=== PATIENT | male | born 1990 | race Caucasian/White ===

== ENCOUNTER 2017-09-11 21:10 | Emergency (ER) | payer BC, OTHER ==
[~2017-09-11] VITALS: Ht 182.9 cm; Wt 100.6 kg
[2017-09-11 21:20] VITALS: Ht 182.9 cm; Wt 100.6 kg
[2017-09-11 22:37] LABS: ADD UMIC NO; UR ASCORBIC ACID NEGATIVE (NEGATIVE); UR BILIRUBIN (Dip) NEGATIVE (NEGATIVE); UR BLOOD (Dip) NEGATIVE (NEGATIVE); UR CLARITY CLEAR (CLEAR); UR COLOR YELLOW (YELLOW); UR GLUCOSE (Dip) NEGATIVE (NEGATIVE); UR KETONES (Dip) NEGATIVE (NEGATIVE); UR LEUKOCYTE ESTERASE (Dip) NEGATIVE Leu/ul (NEGATIVE); UR NITRITE (Dip) NEGATIVE (NEGATIVE); UR SPECIFIC GRAVITY (Dip) 1.033 (1.003-1.030); UR TOTAL PROTEIN (Dip) NEGATIVE (NEGATIVE); UR UROBILINOGEN (Dip) 2+ mg/dL (NEGATIVE)
[2017-09-11] MEDS ORDERED: CEFTRIAXONE 250 MG INJ IM ONE (23:30)
[2017-09-11] MEDS ORDERED: AZITHROMYCIN 250 MG TAB PO ONE (23:30)
--- NOTE | 2017-09-11 23:46 | RADRPT ---
PROCEDURE: Scrotal ultrasound CLINICAL INDICATION: Scrotal pain. TECHNIQUE: Scrotal ultrasound was performed with sagittal and transverse views. Cantu scale and co eduardo imaging was performed. Images were reviewed on high resolution PACS monitors. COMPARISON: None available FINDINGS: The right testicle measures 4.3 x 2.4 x 3.3 cm . There is normal size and echogenicity and morpholog y of the right testicle with normal blood flow. The right epididymis is normal. A mild hydrocele is seen. There is no evidence for a varicocele.. The left testicle measures 4.6 x 2.3 x 3.1 cm. There is normal size and echogenicity and morphology of the left testicle with normal blood flow. There is small left epididymal head cysts measuring up to 2.5 mm. The left epididymis is otherwise normal. A mild hydrocele is seen. There is no evidence for a varicocele.. IMPRESSION: 1. Normal examination testes without evidence for orchitis or torsion. 2. Mild bilateral hydroceles. 3. Small left epididymal cyst. RPTAT: HMVK .Boubacar Devine MD, MD Date Time Electronically viewed and signed by .Boubacar Devine MD, MD on 09/11/2017 23:45 .K/
[2017-09-11] MEDS ORDERED: CLOT30CR24 TOP (23:57)
[2017-09-12 00:11] VITALS: PULSE 69; RESP 22; TEMP 97.4
--- NOTE | 2017-09-12 02:15 | ERD ---
ER Documentation Chief Complaint Chief Complaint bib self, cc: urinary pain x 4 days, burning sensation while urinating HPI 26-year-old male complaining of dysuria and penile pain 4 days. Patient stated that he has continuous burning sensation during urination. He also had pain at the base of his penis. Patient stated that he has only one sexual partner in the last 12 month, and is with this partner for 2-3 years. Denies fever or chills. Denies urinary frequency or urgency. Denies penile discharge. Denies flank pain. ROS All systems reviewed and are negative except as per history of present illness. Medications Home Meds Active Scripts Clotrimazole* (Clotrimazole* AF) 1% - 30 Gm Cream.gm., 1 APPLIC TOP BID for 14 Days, TUB Prov:SOL RASHEED. MEDICAL BILLING COORDINATOR 09/11/17 Allergies Allergies: Coded Allergies: No Known Allergy (Unverified , 09/11/17) PMhx/Soc Medical and Surgical Hx: pt denies Medical Hx, pt denies Surgical Hx Hx Alcohol Use: Yes Hx Substance Use: No Hx Tobacco Use: Yes Smoking Status: Current every day smoker Physical Exam Vitals Vital Signs Date Time Temp Pulse Resp B/P Pulse Ox O2 Delivery O2 Flow Rate FiO2 09/12/17 00:11 97.4 69 22 99 Room Air 09/11/17 21:20 98.5 86 18 155/93 100 Physical Exam General: Well-developed, well-nourished, conscious and coherent, in no distress Skin: Warm and dry without rash, good texture and turgor Head: Normocephalic without evidence of trauma Eyes: Sclera and conjunctivae normal; pupils equal, round, and reactive to light; extraocular movements are intact Chest: Normal AP diameter. Good expansion without retractions. Nontender. Lungs are clear to auscultate bilaterally with good tidal volume Heart: Regular rate and rhythm. No murmur, rub, or gallops heard Abdomen: Soft and nontender without masses, guarding, or rebound. Bowel sounds are active. No hepatosplenomegaly Back: Without spinal or CVA tenderness Pelvis: Nontender to palpation and stable to compression : Uncircumsized male. Erythema noted at the urethra meatus, and base of the penile shaft in the posterior aspect, no penile discharge. Normal scrotum, no mass noted. No inguinal hernia. Extremities: Full range of motion. Good strength bilaterally. No clubbing, cyanosis, or edema. Peripheral pulses are intact. Sensation intact Neuro: Alert and oriented 4, GCS 15. Cranial nerves grossly intact. Motor and sensory exams nonfocal. Moves all extremities. Speech clear. Gait normal Results 24 hrs Laboratory Tests Test 09/11/17 21:14 Urine Color YELLOW Urine Clarity CLEAR Urine pH 6.0 Urine Specific [place] 1.033 Urine Ketones NEGATIVEmg/dL Urine Nitrite NEGATIVEmg/dL Urine Bilirubin NEGATIVEmg/dL Urine Urobilinogen 2+mg/dL Urine Leukocyte Esterase NEGATIVELeu/ul Urine Hemoglobin NEGATIVEmg/dL Urine Glucose NEGATIVEmg/dL Urine Total Protein NEGATIVEmg/dl Current Medications Medications (Trade) Dose Ordered Sig/Avi Route PRN Reason Start Time Stop Time Status Last Admin Dose Admin Azithromycin (Zithromax) 1,000 mg ONCE ONCE PO 09/11/17 23:30 09/11/17 23:31 DC 09/11/17 23:53 Ceftriaxone Sodium (Rocephin) 250 mg ONCE ONCE IM 09/11/17 23:30 09/11/17 23:31 DC 09/11/17 23:54 PROCEDURE: Scrotal ultrasound CLINICAL INDICATION: Scrotal pain. TECHNIQUE: Scrotal ultrasound was performed with sagittal and transverse views. Cantu scale and color imaging was performed. Images were reviewed on high resolution PACS monitors. COMPARISON: None available FINDINGS: The right testicle measures 4.3 x 2.4 x 3.3 cm . There is normal size and echogenicity and morphology of the right testicle with normal blood flow. The right epididymis is normal. A mild hydrocele is seen. There is no evidence for a varicocele.. The left testicle measures 4.6 x 2.3 x 3.1 cm. There is normal size and echogenicity and morphology of the left testicle with normal blood flow. There is small left epididymal head cysts measuring up to 2.5 mm. The left epididymis is otherwise normal. A mild hydrocele is seen. There is no evidence for a varicocele.. IMPRESSION: 1. Normal examination testes without evidence for orchitis or torsion. 2. Mild bilateral hydroceles. 3. Small left epididymal cyst. RPTAT: HMVK .Boubacar Devine MD, MD Date Time Electronically viewed and signed by .Boubacar Devine MD, on 09/11/2017 23:45 .K/ CC: SOL RASHEED NP Procedures/MDM Well-appearing 26-year-old male present ED was dysuria and penile pain 4 days. UA is negative. Scrotal ultrasound obtained, negative for epididymitis or orchitis. Despite patient complaining of monogamous sexual relationship, patient is in the age group of high risk for sexually transmitted infection. Urine sent out for chlamydia and gonorrhea testing, results pending. Patient given azithromycin 1 g p.o. and Rocephin 250 mg IM in the ED. Patient is noted to have erythema and tenderness at the urethra meatus and base of the penile shaft on exam. It is possible the patient's symptoms is due to fungal balanitis. Clotrimazole cream prescribed for patient. Patient advised to keep the area clean and dry, he is also advised to pullback foreskin and clean the penile head thoroughly during shower. Patient appears well, stable for discharge and outpatient management. Medical decision making shared with patient and family. Education provided to patient and family. Patient and family expressed understanding of the plan. Medications on discharge: Clotrimazole cream. Follow-up: Primary care provider in 2-3 days or return to ED if worse. Disclaimer: Inadvertent spelling and grammatical errors are likely due to EHR/ dictation software use and do not reflect on the overall quality of patient care. Also, please note that the electronic time recorded on this note does not necessarily reflect the actual time of the patient encounter. Departure Diagnosis: Primary Impression: Dysuria Additional Impression: Balanitis Condition: Stable Patient Instructions: Dysuria, Balanitis Additional Instructions: Call your primary care doctor TOMORROW for an appointment during the next 2-3 days.See the doctor sooner or return here if your condition worsens before your appointment time. SOL RASHEED NP Sep 12, 2017 02:15
== END 2017-09-12 00:05 | disposition home or self-care (01) ==
LOC: FTE 21:10
DX: R30.0 Dysuria (principal); N48.1 Balanitis; F17.210 Nicotine dependence, cigarettes, uncomplicated
CPT/HCPCS: 76870; 81003; 87591; 96372; J0696; Z7502; Z7610

== ENCOUNTER 2019-04-07 11:58 | Day surgery (SDC) | payer BC ==
[2019-04-06 14:02] VITALS: Ht 185.4 cm; Wt 99.5 kg
[2019-04-07] VITALS (12 sets, daily range): BP systolic 102–139; BP diastolic 59–93; PULSE 60–76; RESP 14–31
[~2019-04-07] VITALS: Ht 185.4 cm; Wt 99.5 kg
[~2019-04-07 11:58] MED LIST: CLOT30CR24 TOP
[2019-04-07] MEDS ORDERED: LACTATED RINGER'S 1,000 ML IV SCH (13:30)
--- NOTE | 2019-04-07 13:42 | HPN ---
Date/Time of Note Date/Time of Note DATE: 04/07/19 TIME: 13:42 Interval H&P Admission Note Pt. seen H&P reviewed: No system changes MYNOR CRABTREE MD Apr 07, 2019 13:42
--- NOTE | 2019-04-07 14:30 | PREAC ---
Date/Time of Note Date/Time of Note DATE: 04/07/19 TIME: 14:29 Anesthesia Eval and Record Evaluation Time Pre-Procedure Interview DATE: 04/07/19 TIME: 14:29 Age 28 Sex male NPO: 8 hrs Preoperative diagnosis Left preauricular mass Planned procedure Excision of mass Past Medical History Past Medical History: None Surgery & Anesthesia Issues No known issue Meds Anticoagulation: No Beta Vijay within 24 hr: No Reason Beta Vijay not given: Pt. not on B-Vijay No Active Prescriptions or Reported Meds Current Medications Lactated Ringer's 1,000 ml @ 25 mls/hr Q24H IV Last administered on 04/07/19at 13:12; Admin Dose 25 MLS/HR; Start 04/07/19 at 13:30 Meds reviewed: Yes Allergies Coded Allergies: No Known Allergy (Unverified , 04/07/19) Allergies Reviewed: Yes Labs/Studies Labs Reviewed: Reviewed by anesthesiologist test: N/A Pre-procedure Exam Last vitals Vital Signs Date Temp Pulse Resp B/P (MAP) Pulse Ox O2 O2 Flow FiO2 Time Delivery Rate 04/07/19 98.2 60 16 116/84 100 Room Air 13:01 (95) Airway: Adequate mouth opening Mallampati: Mallampati II Teeth: Normal Lung: Normal Heart: Normal ASA Physical Status ASA physical status: 1 Emergency: None Planned Anesthetic General/MAC: LMA Planned Pain Management Parenteral pain med Pre-operative Attestations Prior to commencing anesthesia and surgery, the patient was re-evaluated, there was verification of: *The patient's identity *The results of appropriate recent lab work and preoperative vital signs *The above evaluation not changing prior to induction *Anesthetic plan, risk benefits, alternative and complications discussed with patient/family; questions answered; patient/family understands, accepts and wishes to proceed. GEETHA SEQUEIRA MD Apr 07, 2019 14:30
[2019-04-07] MEDS ORDERED: PROPOFOL 20 ML ONE (14:38)
[2019-04-07] MEDS ORDERED: LIDOCAINE 2% (SDV) 5 ML INJ ONE (14:38)
[2019-04-07] MEDS ORDERED: LIDOCAINE 1%/EPI 30 ML INJ ONE (14:43)
[2019-04-07] MEDS ORDERED: NEOMYC/POLYMYX/BACIT 30 GM OINT ONE (15:34)
[2019-04-07] MEDS ORDERED: CEFAZOLIN 1 GM INJ ONE (15:38)
--- NOTE | 2019-04-07 15:46 | SIPON ---
Date/Time of Note Date/Time of Note DATE: 04/07/19 TIME: 15:44 Operative Report Preoperative Diagnosis 1. Left preauricular mass 2. Left infra-auricular mass Postoperative Diagnosis Same Operation/Procedure Performed Excision of left preauricular mass Excision of left infra-auricular mass Surgeon see signature line records management assistant None Anesthesia: general Estimated blood loss: minimal Transfusion Required none Specimen Left preauricular mass Left infra-auricular mass Grafts/Implants none Complications none MYNOR CRABTREE MD Apr 07, 2019 15:46
[2019-04-07] MEDS ORDERED: METOCLOPRAMIDE 10 MG INJ IV PRN (16:00)
[2019-04-07] MEDS ORDERED: ONDANSETRON 4 MG INJ IV PRN (16:00)
[2019-04-07] MEDS ORDERED: FENTAnyl 50 MCG/ML VIAL IV PRN ×3 (16:00)
[2019-04-07] MEDS ORDERED: OXYCODONE/ACETAMINOPHEN (5/325) TAB PO PRN ×2 (16:00)
[2019-04-07] MEDS ORDERED: MIDAZOLAM 1 MG/ML 2 ML INJ IV PRN (16:00)
[2019-04-07] MEDS ORDERED: DIPHENHYDRAMINE 50 MG INJ IV PRN (16:00)
[2019-04-07] MEDS ORDERED: MEPERIDINE 25 MG INJ IV PRN (16:00)
--- NOTE | 2019-04-07 18:09 | PAC ---
Date/Time of Note Date/Time of Note DATE: 04/07/19 TIME: 18:09 Post-Anesthesia Notes Post-Anesthesia Note Last documented vital signs Vital Signs Date Temp Pulse Resp B/P (MAP) Pulse Ox O2 O2 Flow FiO2 Time Delivery Rate 04/07/19 97.8 68 18 139/68 99 Room Air 16:35 (91) 04/07/19 2.0 15:57 Activity: WNL Respiratory function: WNL Cardiovascular function: WNL Mental status: Baseline Pain reasonably controlled: Yes Hydration appropriate: Yes Nausea/Vomiting absent: Yes GEETHA SEQUEIRA MD Apr 07, 2019 18:09
--- NOTE | 2019-04-08 08:08 | OPR ---
DATE OF OPERATION: 04/07/2019 PREOPERATIVE DIAGNOSES: 1. Left preauricular mass. 2. Left infraauricular mass. POSTOPERATIVE DIAGNOSES: 1. Left preauricular mass. 2. Left infraauricular mass. OPERATION PERFORMED: 1. Excision of left preauricular mass. 2. Excision of left infraauricular mass. INDICATIONS: This is a 28-year-old gentleman with a history of multiple subcutaneous cystic lesions. The patient presented with a preauricular mass that was slowly expanding. He stated that there had been discharge from the cyst decompressed in the past. He was referred from a general surgeon due t o possible parotid mass. He underwent a CT scan of the neck that demonstrated a subcutaneous cystic mass that was separate from the parotid gland. I discussed with the patient the risks, benefits, rat ionale, alternatives to surgery, which included but were not limited to, dissatisfaction with cosmeti c outcome, recurrence of mass, infection, bleeding, scar, numbness, paresis or paralysis of the facia l nerve, need for further treatment. The patient understood that additional risks were involved with any surgery or anesthetic that could even include . He understood all these issues and did ask me to proceed. DESCRIPTION OF PROCEDURE: The patient was identified in the preoperative holding area and informed c onsent was confirmed, patient was transferred to the operating room and anesthesia was induced, utili zing an LMA. I marked incision in the preauricular crease just anterior to the tragus in order to cl osely hide the incision and allow for shaving in the future. There was a second incision marked in t he neck along the infraauricular incision that was taken along the relaxed skin tension lines. We godoy ve discussed skin incision placement preoperatively and aimed to keep them as far as possible from hi s usual hardin area in order to optimize the postoperative cosmetic appearance. I injected lidocaine with epinephrine into each incision and the patient was sterilely prepped and draped with Betadine. I started with the preauricular mass. Incision was made with a #15 scalpel. As I passed through the dermis, a cystic mass was immediately apparent. I used curved dissectors to carefully dissect aroun d the borders of the cystic lesion performing capsular dissection and sparing the adjacent tissues. As I was nearly finished with the capsular dissection, there was a small rupture of the cyst and a ch eesy material was extruded. I completed the remainder of the dissection, staying close along the cap emelina of the lesion and thereafter completely excised. I repeatedly irrigated and suctioned clean the wound. Hemostasis was excellent. The wound was closed with 4-0 Monocryl buried knot interrupted de ep sutures followed by 6-0 Prolene interrupted sutures for the skin. Next, I proceeded to the infraa uricular mass. Incision was performed with a #15 scalpel. As soon as I passed through the dermis, t he cystic mass was immediately apparent and dissected along the borders of the cyst staying quite kristan se to the cyst wall. Part way through this dissection, the cyst also ruptured with expression of josey esy material and I continue the dissection and I was able to dissect out the cyst while sparing all t he adjacent tissues. This proceeded in a fairly routine manner and hemostasis was excellent. I did insert a small piece of Surgicel into the wound to avoid any postoperative hematoma. The skin was th ereafter closed using 4-0 Monocryl buried interrupted suture for the dermis followed by 5-0 Prolene i nterrupted suture for the skin. At this time, the operation was concluded. All instruments, sponge counts were correct. ESTIMATED BLOOD LOSS: Minimal. COMPLICATIONS: None. SPECIMEN: 1. Left preauricular mass. 2. Left infraauricular mass. PREOPERATIVE MEDICATION: 1. Ancef. 2. Decadron. Deep venous thrombosis prophylaxis. SCDs. DISPOSITION: Home. Dictated By: MYNOR BOO/DUONG Conf#: [id number] DID#: [id number]
== END 2019-04-07 17:20 | disposition home or self-care (01) ==
LOC: SDS 11:58
PROVIDERS: ATTEND Otolaryngology
DX: L72.0 Epidermal cyst (principal)
CPT/HCPCS: 11446; 88307; J0690; J2405; J3010; Z7512; Z7610